=== PATIENT | female | born 1985 | race Caucasian/White ===

== ENCOUNTER 2017-08-26 16:25 | Outpatient (CLI) | payer OTHER ==
[~2017-08-26 16:25] MED LIST: TYLENOL-CODEINE1 TAB PO
== END 2017-08-27 10:16 | disposition home or self-care (01) ==
LOC: OBS/DEL 16:25 → NST 16:25 → OBS/DEL 20:01
DX: O26.893 Other specified pregnancy related conditions, third trimester (principal); Z04.3 Encounter for examination and observation following other accident; W18.39XA Other fall on same level, initial encounter; Y93.89 Activity, other specified; Y92.098 Other place in other non-institutional residence as the place of occurrence of the external cause; Y99.8 Other external cause status

== ENCOUNTER 2017-10-05 16:15 | Inpatient (IN) | payer OTHER ==
[~2017-10-05] VITALS: Ht 167.6 cm; Wt 61.7 kg
== END 2017-10-25 13:18 | disposition home or self-care (01) | DRG 775 ==
LOC: OB/GYN 10-23 10:57 → LDR 10-23 10:57 → OB/GYN 10-23 16:49 → LDR 10-29 16:14
PROC: 10E0XZZ Delivery of Products of Conception, External Approach (ICD-10-PCS; principal; 2017-10-23)
PROC: 0HQ9XZZ Repair Perineum Skin, External Approach (ICD-10-PCS; 2017-10-23)
PROC: 10907ZC Drainage of Amniotic Fluid, Therapeutic from Products of Conception, Via Natural or Artificial Opening (ICD-10-PCS; 2017-10-23)
PROC: 4A1HXCZ Monitoring of Products of Conception, Cardiac Rate, External Approach (ICD-10-PCS; 2017-10-23)
DX: O70.0 First degree perineal laceration during delivery (principal); Z3A.39 39 weeks gestation of pregnancy; Z37.0 Single live birth

== ENCOUNTER 2017-10-10 11:13 | Outpatient (CLI) | payer OTHER | END 2017-10-10 11:56 | disposition home or self-care (01) | LOC: NST 11:13 | DX: Z34.83 Encounter for supervision of other normal pregnancy, third trimester (principal) ==

== ENCOUNTER 2017-10-22 10:10 | Outpatient (CLI) | payer OTHER | END 2017-10-22 10:58 | disposition home or self-care (01) | LOC: NST 10:10 | DX: Z34.83 Encounter for supervision of other normal pregnancy, third trimester (principal) ==

== ENCOUNTER → 2017-11-20 | Day surgery (SDC) | payer OTHER | END | disposition home or self-care (01) | LOC: CIR.AMB 06:30 | DX: G56.03 Carpal tunnel syndrome, bilateral upper limbs (principal) ==

== ENCOUNTER 2018-05-30 07:25 | Day surgery (SDC) | payer OTHER | END 2018-05-30 12:30 | disposition home or self-care (01) | LOC: AMB-ENDOS 07:25 | DX: R19.8 Other specified symptoms and signs involving the digestive system and abdomen (principal); Z12.11 Encounter for screening for malignant neoplasm of colon ==

== ENCOUNTER 2018-06-03 08:54 | Emergency (ER) | payer OTHER ==
[~2018-06-03] VITALS: Ht 167.6 cm; Wt 52.2 kg
== END 2018-06-03 13:13 | disposition home or self-care (01) ==
LOC: ER 08:54
DX: J03.80 Acute tonsillitis due to other specified organisms (principal)

== ENCOUNTER 2018-12-16 17:13 | Emergency (ER) | payer OTHER ==
[~2018-12-16] VITALS: Ht 182.9 cm; Wt 49.9 kg
== END 2018-12-16 18:45 | disposition home or self-care (01) ==
LOC: ER 17:13
DX: M54.5 Low back pain (principal); G89.11 Acute pain due to trauma

== ENCOUNTER → 2019-04-03 | Outpatient (CLI) | payer OTHER | END | disposition home or self-care (01) | LOC: RAD 16:00 | DX: N62 Hypertrophy of breast (principal) ==

== ENCOUNTER 2019-04-23 07:44 | Outpatient (CLI) | payer OTHER | END 2019-04-23 07:57 | disposition home or self-care (01) | LOC: EKG 07:44 | DX: N62 Hypertrophy of breast (principal); Z86.010 Personal history of colon polyps ==

== ENCOUNTER 2019-04-28 07:09 | Day surgery (SDC) | payer OTHER | END 2019-04-28 12:14 | disposition home or self-care (01) | LOC: CIR.AMB 07:09 | PROVIDERS: Plastic Surgery | PROC: 0H0V0JZ Alteration of Bilateral Breast with Synthetic Substitute, Open Approach (ICD-10-PCS; principal; 2019-04-28 07:00) | DX: N64.82 Hypoplasia of breast (principal) ==

== ENCOUNTER 2020-07-02 11:04 | Outpatient (CLI) | payer OTHER | END 2020-07-02 11:30 | disposition home or self-care (01) | LOC: RAD 11:04 | PROVIDERS: ATTEND Physical Medicine & Rehabilitation | DX: M62.830 Muscle spasm of back (principal); M47.896 Other spondylosis, lumbar region ==

== ENCOUNTER 2024-10-29 14:42 | Outpatient (CLI) | payer OTHER ==
[~2024-10-29 14:42] MED LIST changes: +CEFADROXIL500 MG PO
== END 2024-10-29 14:54 | disposition home or self-care (01) ==
LOC: MRI 14:42
PROVIDERS: ATTEND Psychiatry & Neurology Neurology
DX: G43.109 Migraine with aura, not intractable, without status migrainosus (principal); G43.E09 Chronic migraine with aura, not intractable, without status migrainosus
CPT/HCPCS: 70551